=== PATIENT | female | born 1990 | race Two or more races ===

== ENCOUNTER 2023-09-04 12:02 | Outpatient (AMB) | payer BC, SELFPAY ==
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
[2023-09-04 13:40] VITALS: BP 128/86; PULSE 51; TEMP 36.8; O2SAT 99; BMI 23.6
== END 2023-09-04 14:12 | disposition home or self-care (01) ==
PROVIDERS: Visit Provider Internal Medicine
DX: M54.50 Low back pain, unspecified (principal)
CPT/HCPCS: 99214